=== PATIENT | male | born 1965 | race Caucasian/White ===

== ENCOUNTER 2022-10-20 22:18 | Emergency (ER) | payer OTHER, MEDICARE, MEDICAID, SELFPAY ==
--- NOTE | 2022-10-21 00:15 | ED.GENADULT ---
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 Patient is on hospice. 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 Patient's was concerned because he had an episode of vomiting earlier today. I discussed the patient's prognosis and quality of life with his and she agrees that no diagnostic workup will be performed today as the goals of patient care will be comfort only. Patient's states the last time the patient could talk was 1 year ago and at that time he was crying uncontrollably due to severe depression from his disease. [facility] Past Medical History Medical History Spinal cord and nerve root disorder Exam Narrative: APPEARANCE: Patient is chronically ill-appearing with severe muscle wasting Head: patient is lying in bed with his mouth agape EYES: unable to assess NOSE: Atraumatic NECK: Trachea midline RESPIRATORY: No increased rate of breathing, scattered ronchi CARDIOVASCULAR: RRR, ABDOMINAL: Non-distended MUSCULOSKELETAl: No obvious deformities NEURO: response to pain SKIN:: Warm, dry. Normal color PSYCHIATRIC: Normal affect Medical Decision Making MDM Narrative Medical decision making narrative: -Presentation: 57-year-old male with severe neurologic degenerative disease presenting after an episode of vomiting at home. Goals of care were discussed with the patient's and no diagnostic workup will be ordered today. The goal of care will be to make the patient comfortable as his quality of life is poor. Patient was treated for pain and nausea and will be discharged back home to hospice. -DDX includes but is not limited to: UTI, pneumonia, dehydration, terminal neurologic disease -Co-morbidities complicating care: spinal cord ataxia -Social determinants of health: disabled -Hx from independent Sources: at bedside -Independent interpretation of studies: none -Interventions: 1 mg Dilaudid, 1 mg Ativan, scopolamine patch, 4 mg Zofran -Shared decision making / Disposition: discharged back to hospice. Lab Data Labs: Lab Results 10/21/22 Range/Units 22:30 Urine Color Pending Urine Appearance Pending Urine pH Pending Ur Specific [place] Pending Urine Protein Pending Urine Glucose (UA) Pending Urine Ketones Pending Ur Blood (Man) Pending Urine Nitrate Pending Urine Bilirubin Pending Urine Urobilinogen Pending Leukocyte Esterase Rfl Pending Discharge Plan Discharge Clinical Impression: Spinal cord and nerve root disorder, Encounter for end of life care Patient Disposition: Hospice - Home Condition: Terminal Follow-up/Referrals: UNKNOWN,DOCTOR [Primary Care Provider] -
[2022-10-21 00:43] LABS: Add Urine Microscopic? YES; Appearance Urine Cloudy (Clear); Bacteria Urine None Seen /hpf; Bilirubin Urine Negative (Negative); Blood Urine 3+ (Negative); Calcium Oxalate Crystals Urine Present /hpf; Color Urine Dark Yellow (Yellow); Glucose Urine UA Negative (Negative); Ketones Urine Negative (Negative); Leukocyte Esterase Ur 1+ LEU/UL (Negative); Nitrate Urine Positive (Negative); Non Pathogenic Casts 0-2; Protein Urine 2+ mg/dL (Negative); Specific Grav Ur 1.026 (1.001-1.035); Squamous Epithelial Cell Urine Occasional /hpf (Few); WBC Urine 51-100 /hpf
--- NOTE | 2022-10-21 00:52 | PC.NURSE ---
see downtime charting regarding pt care [id number] 10/20/22. This RN assumed care of PT at 2316
== END 2022-10-21 00:54 | disposition hospice, home (50) ==
PROVIDERS: Emergency Provider Emergency Medicine
DX: G31.89 Other specified degenerative diseases of nervous system (principal); Z51.5 Encounter for palliative care; Z74.01 Bed confinement status
CPT/HCPCS: 81001; 87086; 99283